=== PATIENT | male | born 1975 | race American Indian/Alaskan Native ===

== ENCOUNTER 2018-01-08 22:37 | Emergency (ER) | payer OTHER ==
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
[2018-01-09] MEDS ORDERED: MOTRIN PO ONE (04:58)
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
[2018-01-09 05:17] VITALS: BP 124/86
== END 2018-01-09 05:16 | disposition home or self-care (01) ==
LOC: ED 22:37
DX: S40.011A Contusion of right shoulder, initial encounter (principal); S09.90XA Unspecified injury of head, initial encounter; F17.200 Nicotine dependence, unspecified, uncomplicated; V49.59XA Passenger injured in collision with other motor vehicles in traffic accident, initial encounter; Y93.89 Activity, other specified; Y92.488 Other paved roadways as the place of occurrence of the external cause; Y99.8 Other external cause status
CPT/HCPCS: 70450; 99284